=== PATIENT | male | born 1960 | race Caucasian/White ===

== ENCOUNTER 2017-12-21 11:45 | Emergency (ER) | payer OTHER, BC ==
[2017-12-21 11:59] VITALS: TEMP 98.3; BMI 25.7
--- NOTE | 2017-12-21 14:31 | PDOC ---
Attending Attestation - Resident Resident Name: Suzan Smith - ED Attending Attestation I have performed the following: I have examined & evaluated the patient, The case was reviewed & discussed with the resident, I agree w/resident's findings & plan, Exceptions are as noted - HPI HPI: 12/21/17 15:41 The patient is a 57 year old male with past medical history of lumbar spinal surgery, and prostate CA in remission who presents to the ED s/p mechanical fall at 11 am today. The patient states he came in from the snow outside and slipped on an icy platform and fell down 2-3 stairs. He reports hitting the back of his head as well as his left pack, and left shoulder. He reports a headache in the area in which he fell as well as some mild nausea which has subsided. He denies any LOC, bleeding, visual changes, or focal deficits. He denies taking anything for the pain. Does not take ASA or any other AC. PCP: Dr. Dane Vaca - Physicial Exam PE: 12/21/17 15:41 agree with resident exam - Medical Decision Making 12/21/17 14:00 57-year-old male presents to the emergency department with a slip and fall down 2-3 stairs. Vitals within normal limits. Exam within normal limits, including completely normal neurologic exam. Patient has no midline cervical tenderness palpation, no deficits, and had no LOC with a GCS of 15 and thus his cervical spine is cleared. We will obtain a CT scan of his head given his headache and treat pain with Tylenol. 12/21/17 15:55 CT head negative. Patient asymptomatic and feels well. Return precautions provided. Patient requests discharge. Advised him to follow-up with Dr. Vaca in 2-3 days. I discussed the physical exam findings, ancillary test results and final diagnoses with the patient. I answered all of the patient's questions. The patient was satisfied with the care received and felt comfortable with the discharge plan and treatment plan. The patient will call their primary care physician within 24 hours to arrange follow-up and will return to the Emergency Department with any new, persistent or worsening symptoms.
[2017-12-21] MEDS ORDERED: ACETAMINOPHEN 500 MG TABLET (FP) PO ONE (14:58)
[2017-12-21] MEDS ORDERED: ACETAMINOPHEN 325 MG TABLET (FP) ONE (15:01)
--- NOTE | 2017-12-21 15:04 | PDOC ---
History of Present Illness <Marisa Pace - Last Filed: 12/21/17 15:56> - General History Source: Patient Exam Limitations: No Limitations - History of Present Illness Initial Comments: This is a 57 YOM with h/o prostate cancer s/p prostatectomy, and spinal surgery just below L1, who presents s/p fall down three steps at 11 am today. This was a work injury. He recalls having walked outside in the snow just prior to going inside and attempting to descend a three-stair stairway. He believes there was snow on the soles of his shoes because he slipped and fell backward, onto his left posterior head, left shoulder, and left anterior distal tibia (patient points). He braced himself with his right hand. He denies having lost consciousness. He also denies any preceding dizziness, SOB, chest pain, or other symptoms. Since the incident he has had a headache and mild nausea, but no vomiting, confusion, numbness, tingling, focal weakness, difficulty walking, SOB, abdominal pain, vision changes, or other symptoms. <Suzan Smith - Last Filed: 12/22/17 04:35> - General Chief Complaint: Injury Stated Complaint: FALL/HI Time Seen by Provider: 12/21/17 13:58 Past History <Marisa Pace - Last Filed: 12/21/17 15:56> - Past Medical History Cancer: Yes (prostate) COPD: No - Surgical History Abdominal Surgery: (prostatectomy 3 months ago) - Suicide/Smoking/Psychosocial Hx Smoking History: Never smoked Hx Alcohol Use: No Drug/Substance Use Hx: No Substance Use Type: None <Suzan Smith - Last Filed: 12/22/17 04:35> - Past Medical History Allergies/Adverse Reactions: Allergies Allergy/AdvReac Type Severity Reaction Status Date / Time Penicillins Allergy Verified 12/21/17 11:49 Home Medications: Ambulatory Orders Cholecalciferol (Vitamin D3) [Vitamin D-3] 2,000 unit PO DAILY capsule Review of Systems - Review of Systems Able to Perform ROS?: Yes Constitutional: No: Chills, Fever, Unexplained wgt Loss HEENTM: No: Nose Congestion, Throat Pain Respiratory: No: Cough, Shortness of Breath Cardiac (ROS): No: Chest Pain, Palpitations ABD/GI: Yes: Nausea. No: Constipated, Diarrhea, Vomiting : No: Burning, Dysuria Musculoskeletal: No: Back Pain, Neck Pain Integumentary: Yes: Bruising. No: Rash Neurological: Yes: Headache. No: Numbness, Tingling, Weakness, Dizziness Endocrine: No: Unexplained Weight Gain, Unexplained Weight Loss <Suzan Smith - Last Filed: 12/22/17 04:35> *Physical Exam - Vital Signs Last Vital Signs Temp Pulse Resp BP Pulse Ox 98.3 F 89 18 131/91 99 12/21/17 11:46 12/21/17 11:46 12/21/17 11:46 12/21/17 11:46 12/21/17 11:46 <Marisa Pace - Last Filed: 12/21/17 15:56> - Vital Signs Last Vital Signs Temp Pulse Resp BP Pulse Ox 98.3 F 89 18 131/91 99 12/21/17 11:46 12/21/17 11:46 12/21/17 11:46 12/21/17 11:46 12/21/17 11:46 - Physical Exam General Appearance: Yes: Nourished, Appropriately Dressed, Other (nontoxic and well appearing adult male who appears somewhat anxious, answering questions appropriately). No: Apparent Distress HEENT: positive: EOMI, DUNIA, Normal Voice, Hearing Grossly Normal, Other (left superior occipital scalp contusion without abrasion, no cephalohematoma, no vann sign, no raccoon eyes, no CSF rhinorrhea or otorrhea). negative: Scleral Icterus (R), Scleral Icterus (L), Nasal Congestion Neck: positive: Trachea midline, Supple. negative: Tender, Rigid Respiratory/Chest: positive: Lungs Clear, Normal Breath Sounds. negative: Respiratory Distress, Crackles, Rhonchi, Stridor, Wheezing Cardiovascular: positive: Regular Rhythm, Regular Rate, S1, S2. negative: Murmur Gastrointestinal/Abdominal: positive: Normal Bowel Sounds, Soft. negative: Tender, Organomegaly, Pulsatile Mass, Guarding Musculoskeletal: positive: Normal Inspection. negative: Decreased Range of Motion, Vertebral Tenderness Extremity: positive: Normal Capillary Refill, Normal Range of Motion, Other ( left anterior distal tibia with 3x3 cm mildly raised developing ecchymosis without deformity or overlying abrasion, right wrist with 2 cm superficial abrasion, left superior trapezius with muscle spasm without significant ttp). negative: Cyanosis Integumentary: positive: Normal Color, Dry, Warm. negative: Erythema, Rash, Bruising Neurologic: positive: paper sheeter II-XII NML intact, Fully Oriented, Alert, Normal Mood/ Affect, Normal Response, Motor Strength 5/5, Finger to Nose (normal), Other (no pronator drift, normal gait). negative: EOM Palsy, Facial Droop, Numbness, Sensory Deficit, Confused, Disoriented <Suzan Smith - Last Filed: 12/22/17 04:35> ED Treatment Course - Medications Given in the ED: ED Medications Discontinued Medications Generic Name Dose Route Start Last Admin Trade Name Freq PRN Reason Stop Dose Admin Acetaminophen 975 mg 12/21/17 14:58 12/21/17 15:02 Tylenol - PO 12/21/17 14:59 975 mg ONCE ONE Administration <Marisa Pace - Last Filed: 12/21/17 15:56> - RADIOLOGY Radiology Studies Ordered: Category Date Time Status HEAD CT WITHOUT CONTRAST [CT] Stat CT Scan 12/21/17 14:58 Ordered <Suzan Smith Last Filed: 12/22/17 04:35> Medical Decision Making - Medical Decision Making 57 YOM p/w fall down stairs hitting his head in the process. VS are wnl. Exam notable for left superior occipital scalp contusion, no other abnormalities on neuro exam. DDX IBNLT scalp contusion, concussion, much less likely ICH or skull fracture, etc. Ordered is Tylenol 975 mg, Head CT without contrast. Head CT remarkable for: wnl On reassessment: patient's exam is benign and unchanged, gait is normal. He states his pain is much improved. The patient is appropriate for discharge home with close outpatient followup. They are comfortable with this plan and will follow up with their PCP in 1-3 days. Return precautions for concussion and CHI are discussed. <Suzan Smith - Last Filed: 12/22/17 04:35> *DC/Admit/Observation/Transfer - Discharge Dispostion Admit: No - Attestations Physician Attestion: 12/21/17 15:58 Dr. Marisa Cole MD, attest that this document has been prepared under my direction and personally reviewed by me in its entirety. I further attest, that it accurately reflects all work, treatment, procedures and medical decision -making performed by me. <Marisa Pace - Last Filed: 12/21/17 15:56> - Discharge Dispostion Admit: No <Suzan Smith - Last Filed: 12/22/17 04:35> Diagnosis at time of Disposition: Concussion Qualifiers: Encounter type: initial encounter Loss of consciousness presence/duration: without LOC Qualified Code(s): S06.0X0A - Concussion without loss of consciousness, initial encounter - Discharge Dispostion Disposition: HOME Condition at time of disposition: Stable - Patient Instructions Printed Discharge Instructions: DI for Concussion Additional Instructions: Follow up with Dr. Vaca within 2-3 days. You may take Ibuprofen or Tylenol as needed for pain. Return to the emergency department if you have any new, worsening or concerning symptoms. - Post Discharge Activity Forms/Work/School Notes: Back to Work
[2017-12-21 16:23] VITALS: BP 137/70; PULSE 87
== END 2017-12-21 16:23 | disposition home or self-care (01) ==
LOC: FER 11:45
DX: S06.0X0A Concussion without loss of consciousness, initial encounter (principal); W00.1XXA Fall from stairs and steps due to ice and snow, initial encounter; Y93.89 Activity, other specified; Y92.9 Unspecified place or not applicable; Z85.46 Personal history of malignant neoplasm of prostate
CPT/HCPCS: 70450-TC; 99281-25

== ENCOUNTER 2018-05-03 06:57 | Day surgery (SDC) | payer BC ==
[2018-05-01 14:35] VITALS: BMI 26.1
[2018-05-03] MEDS ORDERED: PROPOFOL 20 ML ONE ×3 (07:02)
[2018-05-03] MEDS ORDERED: LIDOCAINE HCL/PF 2% SDV 5ML VIAL ONE (07:06)
[2018-05-03 08:48] VITALS: TEMP 98.2
[2018-05-03 09:16] VITALS: BP 120/66; PULSE 66
--- NOTE | 2018-05-04 16:31 | PATH ---
Surgical Pathology Report Patient Name: COLIN FRANCISCO [facility]. Rec. #: [id number] /Age/Gender: 1960 (Age: 57) / M Account: [id number] Location: Taken: 05/03/2018 Received: 05/03/2018 Reported: 05/04/2018 Physicians: Frank Bill M.D. Specimen(s) Received A: BX DUODENUM B: BX ANTRUM Clinical History GERD, family history colon cancer Postoperative diagnosis: Rule out celiac disease, gastritis Final Diagnosis A. DUODENAL, BIOPSY: DUODENAL MUCOSA WITH MILD CHRONIC DUODENITIS. NO HISTOLOGIC EVIDENCE OF CELIAC DISEASE. B. ANTRUM, BIOPSY: GASTRIC MUCOSA WITH MILD CHRONIC GASTRITIS. IMMUNOSTAIN IS NEGATIVE FOR H. PYLORI ORGANISMS. Electronically Signed Evan Calixto M.D. Gross Description A. Received in formalin, labeled "duodenum" are 2 marin, irregular portions of soft tissue measuring 0.2 and 0.3 cm. in greatest dimension. The specimens are submitted in toto in one cassette. B. Received in formalin, labeled "antrum" are 2 marin, irregular portions of soft tissue measuring 0.3 and 0.5 cm. in greatest dimension. The specimens are submitted in toto in one cassette. 05/03/201805/03/2018
== END 2018-05-03 09:18 | disposition home or self-care (01) ==
LOC: FASU-ENDO 06:57
PROVIDERS: ATTEND Internal Medicine Gastroenterology
PROC: 0DB68ZX Excision of Stomach, Via Natural or Artificial Opening Endoscopic, Diagnostic (ICD-10-PCS; 2018-05-03)
PROC: 0DJD8ZZ Inspection of Lower Intestinal Tract, Via Natural or Artificial Opening Endoscopic (ICD-10-PCS; principal; 2018-05-03 08:11)
PROC: 0DB98ZX Excision of Duodenum, Via Natural or Artificial Opening Endoscopic, Diagnostic (ICD-10-PCS; 2018-05-03 08:11)
DX: Z12.11 Encounter for screening for malignant neoplasm of colon (principal); K29.80 Duodenitis without bleeding; K29.50 Unspecified chronic gastritis without bleeding; R13.10 Dysphagia, unspecified
CPT/HCPCS: 88305-TC; 88342-TC

== ENCOUNTER 2019-05-03 12:13 | Emergency (ER) | payer OTHER, BC ==
--- NOTE | 2019-05-03 12:37 | PDOC ---
Attending Attestation - Resident Resident Name: Jaison Perry - HPI HPI: 05/03/19 13:05 Pt presents to the ED complaining of atraumatic R lower back and hip pain that began after twisting and lifting a heavy object. History of prostate CA, status post prostatectomy, with undetectable PSA, as per oncologist. Denies leg weakness or numbness, or bowel or bladder complaints. 05/03/19 15:00 - Physicial Exam PE: 05/03/19 15:06 Agree with resident exam. PAtient is alert, in NAD and is ambulatory with a steady gait. No point tenderness over spine. No CVA tenderness. - Medical Decision Making 05/03/19 16:58 pt presents to the ED with atraumatic back pain. xray negative for fx or mets. Case discussed with oncologist, who states that his PSA is undetectable and that he is at extremely low risk for mets. No concern for dissection despite HTN given the nature of the pain. will discharge home with follow up with PMD.
[2019-05-03 12:39] VITALS: TEMP 98.7; BMI 25.7
[2019-05-03] MEDS ORDERED: IBUPROFEN 400 MG TABLET (FP) PO ONE (12:44)
--- NOTE | 2019-05-03 12:46 | PDOC ---
History of Present Illness - General Chief Complaint: Injury Stated Complaint: LOWER BACK INJURY AT WORK Time Seen by Provider: 05/03/19 12:19 - History of Present Illness Initial Comments: 05/03/19 13:19 58M with pmh of prostate cancer s/p prostatectomy, and spinal surgery just below L1, presents with right lower back pain after twisting his back picking up heavy trash while at work. He states that the pain radiated from the right lower back at the level of the hip down to the groin. Pain is exacerbated when he attempts to stand up or sit down, but stable if immobile. He urinated once without any pain or blood in the urine. Feels like his right leg has now trouble supporting his body fully. Denies loss of sensation in the groin or buttocks. Denies pain radiating down his legs, denies tingling or any other neurological deficit. Past History - Past Medical History Allergies/Adverse Reactions: Allergies Allergy/AdvReac Type Severity Reaction Status Date / Time Penicillins Allergy Unknown Verified 05/03/19 12:15 Home Medications: Ambulatory Orders NK [No Known Home Medication] 05/03/19 Anemia: No Asthma: No Cancer: Yes (Prostate 08/18 SX) Cardiac Disorders: No CVA: No COPD: No CHF: No Dementia: No Diabetes: No GI Disorders: No Disorders: Yes (PROSTATE CA) HTN: No Hypercholesterolemia: No Liver Disease: No Seizures: No Thyroid Disease: No - Surgical History Abdominal Surgery: Yes (prostatectomy 08/18) Appendectomy: No Cardiac Surgery: No Cholecystectomy: No Lung Surgery: No Neurologic Surgery: No Orthopedic Surgery: Yes (LOWER BACK SURGERY 2012) - Suicide/Smoking/Psychosocial Hx Smoking History: Never smoked Have you smoked in the past 12 months: No Hx Alcohol Use: Yes (SOCIAL) Drug/Substance Use Hx: No Substance Use Type: None Review of Systems - Review of Systems Able to Perform ROS?: Yes Is the patient limited Vietnamese proficient: No Constitutional: No: Symptoms Reported HEENTM: No: Symptoms Reported Respiratory: No: Symptoms reported Cardiac (ROS): No: Symptoms Reported ABD/GI: No: Symptoms Reported : No: Symptoms Reported Musculoskeletal: Yes: See HPI Integumentary: No: Symptoms Reported Neurological: No: Symptoms reported *Physical Exam - Vital Signs Last Vital Signs Temp Pulse Resp BP Pulse Ox 98.7 F 62 18 156/111 H 100 05/03/19 12:15 05/03/19 12:15 05/03/19 12:15 05/03/19 12:15 05/03/19 12:15 - Physical Exam General Appearance: Yes: Nourished, Appropriately Dressed. No: Apparent Distress HEENT: positive: EOMI, DUNIA, Normal ENT Inspection Respiratory/Chest: positive: Lungs Clear, Normal Breath Sounds. negative: Chest Tender, Respiratory Distress Cardiovascular: positive: Regular Rhythm, Regular Rate, S1, S2 Vascular Pulses: Dorsalis-Pedis (R): 2+, Doralis-Pedis (L): 2+ Gastrointestinal/Abdominal: positive: Normal Bowel Sounds, Flat, Soft. negative : Tender Male Genitalia: positive: normal genitalia, inguinal hernia (somewhat hard but non-tender. ). negative: discharge, testicular tenderness, testicular mass, hematuria Musculoskeletal: positive: Other (No midline tenderness but tender over the right ASIS area. ) Extremity: positive: Normal Capillary Refill, Normal Inspection, Normal Range of Motion, Other (Negative leg raise). negative: Calf Tenderness Integumentary: positive: Normal Color, Dry, Warm Neurologic: positive: Fully Oriented, Alert, Normal Mood/Affect, Normal Response , Motor Strength 5/5 Medical Decision Making - Medical Decision Making 05/03/19 13:51 58M with pmh of prostate cancer and resection presenting with acute lower right sided pain following twisting his back lifting a heavy object at work. Due to the patient's history of prostate cancer we have to consider fracture of the vertebral body in the eventuality cancer has metastasized. Also considering slipped disc or worsening hernia although less likely since no pain over hernia and no radiculopathy present. We have low suspicion for aortic dissection, even though his pressure was mildly elevated in the 150's due to location and intensity of the pain. Lumbar xray: Lateral and spot lateral view show normal lordosis with no sign of fracture or subluxation and no sign of blastic or lytic changes. There is narrowing of the L5-S1 intervertebral disc space. There is some sclerosis and degenerative change seen by the anterior superior margin of L4. 2 AP views show the 5 lumbar vertebral bodies to be grossly intact. The SI joints are patent and the paraspinal soft tissues are unremarkable. The density over the anterior superior margin of L4 is difficult to see in these 2 images. If symptoms persist or there is decreased range of motion then further imaging and orthopedic consultation may be of help Spoke to the patient Oncologist, Dr. Mick Still ([phone]) who said the patient PSA levels have been undetectable for the past year and they weren't concerned for metastasis. Will refer the patient's to Orthopedic Surgery (he has his own, Dr. Mkceon) if symptoms persist, told the patient to share his xray resultswith him. Ok to discharge with recommendations. *DC/Admit/Observation/Transfer Diagnosis at time of Disposition: Acute low back pain - Discharge Dispostion Disposition: HOME Condition at time of disposition: Stable Decision to Admit order: No - Referrals Referrals: Brian Butts MD [Primary Care Provider] - - Patient Instructions Printed Discharge Instructions: DI for Low Back Pain, Activity May Be Better then Rest for Low Back Pain Recovery Additional Instructions: Follow up with your Orthopedic Surgeon Dr. Mckeon for any persisting lower back pain. PLease share with him the results of the lumbar xray given to you at this time. Come back to the emergency department for any concerning symptoms likely difficulty urinating, or worsening pain. Take 600mg of Motrin every 4-6h as needed for pain. - Post Discharge Activity Forms/Work/School Notes: Back to Work
[2019-05-03 14:08] VITALS: BP 138/102; PULSE 99
== END 2019-05-03 14:14 | disposition home or self-care (01) ==
LOC: FER 12:13
DX: M54.5 Low back pain (principal); Z85.46 Personal history of malignant neoplasm of prostate; Z90.79 Acquired absence of other genital organ(s); Z88.0 Allergy status to penicillin
CPT/HCPCS: 72100-TC-FY; 81003; 81015; 87086; 99283-25